=== PATIENT | female | born 1985 | race Caucasian/White ===

== ENCOUNTER 2025-05-21 11:32 | Emergency (ER) | payer MEDICAID ==
[~2025-05-21] VITALS: Ht 157.5 cm; Wt 81.8 kg
[~2025-05-21 11:32] MED LIST: NOCURR
[2025-05-21 11:39] VITALS: BP 137/80; PULSE 68; RESP 18; TEMP 98.2; O2SAT 99
[2025-05-21] MEDS: BACITRACIN 0.9 GM PACKET OINTMENT TP ONE (12:26)
[2025-05-21] MEDS: PERTUSS(ACELL),DIPH,TET/PF 0.5 ML SYRINGE [ADULT] IM. ONE (12:29)
[2025-05-21] MEDS ORDERED: BACI28.410 TP (13:16)
== END 2025-05-21 13:23 | disposition home or self-care (01) ==
LOC: EMS 11:36
DX: S91.311A Laceration without foreign body, right foot, initial encounter (principal); F12.90 Cannabis use, unspecified, uncomplicated; W26.0XXA Contact with knife, initial encounter; Y93.89 Activity, other specified; Y92.009 Unspecified place in unspecified non-institutional (private) residence as the place of occurrence of the external cause; Y99.8 Other external cause status
CPT/HCPCS: 90471; 90715; 99283